=== PATIENT | female | born 1950 | race Caucasian/White ===

== ENCOUNTER → 2017-08-12 13:19 | Outpatient (CLI) | payer MEDICARE, OTHER, SELFPAY ==
--- NOTE | 2017-08-12 | DI.MRI.S_ITS ---
PROCEDURE: MR LUMBAR SPINE WO CON INDICATIONS: LUMBAR RADICULOPATHY TECHNIQUE: Noncontrast sagittal T1 spin echo and T2 fast echo, sagittal STIR, axial T1 and T2 fast spin echo through the lumbar spine. In cases with scoliosis, additional coronal T2 fast spin echo may be performed. COMPARISON: None. FINDINGS: Image quality: Excellent. Alignment and Curvature: There is normal bony alignment. Bone Marrow: Marrow is of normal overall signal. No acute vertebral body compression fractures. Spinal Cord: Conus medullaris terminates at the L1-L2 level. Visualized cord demonstrates normal signal and size. Paraspinous Soft Tissues: No paravertebral masses. L1-L2: Normal appearance. L2-L3: Mild disc desiccation with minimal posterior disc bulge. No central canal or foraminal stenosis. L3-L4: Mild disc desiccation with minimal posterior disc bulge. Mild hypertrophy of the flavum. No central canal or foraminal stenosis. L4-L5: Mild disc desiccation with minimal posterior disc bulge. Mild hypertrophy of ligamentum flavum. No central canal stenosis. Mild bilateral foraminal stenosis. L5-S1: Preserved disc height and disc signal. Minimal posterior disc bulge. Mild bilateral facet arthropathy. No central canal or foraminal stenosis. IMPRESSION: 1. 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 2. No central canal stenosis. 3. Mild bilateral foraminal stenosis at L4-L5. Dictated by: Rajan Lund M.D. on 08/12/2017 at 13:10 Approved by: Rajan Lund M.D. on 08/12/2017 at 13:16
== END ==
PROVIDERS: Visit Provider Physician Assistant Medical
DX: M51.36 Other intervertebral disc degeneration, lumbar region (principal); M47.816 Spondylosis without myelopathy or radiculopathy, lumbar region; M99.73 Connective tissue and disc stenosis of intervertebral foramina of lumbar region
CPT/HCPCS: 72148